=== PATIENT | female | born 2000 | race Caucasian/White ===

== ENCOUNTER 2023-11-17 16:53 | Emergency (ER) | payer OTHER ==
[~2023-11-17] VITALS: Ht 157.5 cm; Wt 46.7 kg
[2023-11-17 17:49] LABS: BASOPHILS % (AUTO) 0.4 % (0.0-2.0); EOSINOPHILS % (AUTO) 0.8 % (0.0-7.0); HEMATOCRIT 42.5 % (31.2-41.9); HEMOGLOBIN 14.5 g/dL (10.9-14.3); LYMPHOCYTES # (AUTO) 1.5 K/uL (0.8-4.8); LYMPHOCYTES % (AUTO) 27.8 % (20.5-51.5); MEAN CORPUSCULAR HEMOGLOBIN 29.4 uug (24.7-32.8); MEAN CORPUSCULAR HGB CONC 34 g/dL (32.3-35.6); MEAN CORPUSCULAR VOLUME 86.4 fL (75.5-95.3); MONOCYTES # (AUTO) 0.4 K/uL (0.1-1.30); MONOCYTES % (AUTO) 8.4 % (0.0-11.0); NEUTROPHILS # (AUTO) 3.3 K/uL (1.8-8.9); NEUTROPHILS % (AUTO) 62.6 % (38.5-71.5); PLATELET COUNT (AUTO) 227 K/uL (179-408); RED BLOOD CELL COUNT(AUTO) 4.92 MIL/uL (3.63-4.92); RED CELL DISTRIBUTION WIDTH 12.7 % (12.3-17.7); WHITE BLOOD COUNT (AUTO) 5.2 K/uL (3.8-11.8)
[2023-11-17 17:53] LABS: DIFFERENTIAL COMMENT 1
[2023-11-17 17:57] LABS: *OCCULT BLOOD STOOL NEGATIVE (NEGATIVE)
[2023-11-17 17:59] LABS: CALCIUM 9.3 mg/dL (8.5-10.1); CARBON DIOXIDE 28 mmol/L (21-32); CHLORIDE 102 mmol/L (98-107); CREATININE 0.6 mg/dL (0.6-1.3); GLUCOSE 95 mg/dL (74-106); POTASSIUM 3.7 mmol/L (3.5-5.1); SODIUM SERUM 138 mmol/L (136-145); UREA NITROGEN, BLOOD 9 mg/dL (7-18)
[2023-11-17 18:12] LABS: NT-PRO BNP 22 pg/mL (0-125)
[2023-11-17 19:44] VITALS: BP 122/72; O2SAT 98
== END 2023-11-17 19:44 | disposition home or self-care (01) ==
LOC: ER 16:58
DX: R07.89 Other chest pain (principal)
CPT/HCPCS: 36415; 71045; 84484; 85025; 93005; A4606; A4663